=== PATIENT | male | born 1990 | race Caucasian/White ===

== ENCOUNTER 2022-06-03 12:37 | Outpatient (CLI) | payer OTHER, BC, SELFPAY ==
--- NOTE | 2022-06-03 12:47 | US_ITS ---
WS: [id number] SCROTAL ULTRASOUND EXAMINATION CLINICAL INFORMATION: LEFT TESTICULAR PAIN COMPARISON: None. FINDINGS: TESTES Normal in size and echotexture, without focal lesion. Color Doppler: Normal color Doppler flow pattern. Right testes size: 4.5 cm x 2.8 cm x 2.9 cm. Left testes size: 4.8 cm x 3.6 cm x 2.6 cm. EPIDIDYMIDES Normal in size and echotexture.Small RIGHT epididymal cyst measuring 3 x 5 mm Color Doppler: Normal color Doppler flow pattern. Right epididymis size: 0.6 cm x 0.8 cm x 1.1 cm. Left epididymis size: 0.8 cm x 0.8 cm x 0.9 cm. HYDROCELE None. VARICOCELE Small bilateral varicoceles LEFT greater than RIGHT. RIGHT varicocele measures 20 x 9 mm LEFT varicocele measures 35 x 8 mm OTHER FINDINGS None. US/US scrotum [id number] IMPRESSION: 1. Testicles are normal in size with normal echotexture and vascularity. 2. Small RIGHT epididymal cyst measuring 3 x 5 mm 3. Epididymi otherwise normal bilaterally. 4. Small bilateral varicoceles LEFT greater than RIGHT.
== END 2022-06-03 12:38 | disposition home or self-care (01) ==
LOC: RAD 12:39
PROVIDERS: PCP Family Medicine; Visit Provider Urology
DX: N50.3 Cyst of epididymis (principal)
CPT/HCPCS: 76870